=== PATIENT | female | born 1975 | race Caucasian/White ===

== ENCOUNTER 2019-05-21 14:46 | Emergency (ER) | payer MEDICAID ==
[2019-05-21] MEDS ORDERED: HYDROcodone/Ibuprofen 7.5-200 MG Tab PO ONE (15:07)
[2019-05-21] MEDS ORDERED: oxyCODONE 5 MG Tab PO ONE (15:18)
[2019-05-21] MEDS ORDERED: Ondansetron 4 MG Tab.DIS PO ONE (15:25)
--- NOTE | 2019-05-21 15:50 | CR ---
[id number] RAD/RAD Elbow Right 3V Min Exam: RAD Elbow Right 3V Min Indication:FALL, RIGHT ELBOW PAIN. Comparison: No prior imaging for comparison. Discussion: Mild amount of soft tissue swelling over the olecranon of the elbow. No radiographically evident fracture. No joint effusion or dislocation. Impression: Soft tissue swelling over the olecranon without fracture or dislocation. Dexter Cadet MD 05/21/19 [id number] Thank you for allowing us to participate in the care of your patient.
--- NOTE | 2019-05-22 04:12 | EDM.PDOC ---
ED HPI GENERAL MEDICAL PROBLEM - General Chief Complaint: Upper Extremity Injury/Pain Stated Complaint: POSSIBLE BROKEN ARM Time Seen by Provider: 05/21/19 14:50 Source of Information: Reports: Patient History Limitations: Reports: No Limitations - History of Present Illness INITIAL COMMENTS - FREE TEXT/NARRATIVE: Pt. presents to ER with complaints of injury to R elbow and R hip/thigh region following a fall near [facility]. Pt. states that it was a mechanical fall and denies any symptoms prior to or after the fall. Did not strike her head. Denies any neck pain. Pt. is able to bear weight and ambulate, and states that her hip pain is beginning to improve but complains of severe R elbow pain. Denies any numbness/tingling in the distal portion of the extremity. Onset: Today Location: Reports: Upper Extremity, Right Quality: Reports: Ache, Throbbing Severity: Severe Right Elbow Pain Score (Numeric/FACES): 10 - Related Data Allergies Allergy/AdvReac Type Severity Reaction Status Date / Time acetaminophen [From Tylenol] Allergy Vomiting Verified 05/21/19 15:04 tizanidine Allergy Hives Verified 05/21/19 15:04 Home Meds: Home Meds . [No Known Home Meds] 05/21/19 [History] Past Medical History - Past Health History Medical/Surgical History: Denies Medical/Surgical History Psychiatric History: Reports: Anxiety - Past Surgical History Musculoskeletal Surgical History: Reports: Other (See Below) Social & Family History - Tobacco Use Smoking Status *Q: Current Every Day Smoker Years of Tobacco use: 20 Packs/Tins Daily: 0.4 Review of Systems - Review of Systems Review Of Systems: ROS reveals no pertinent complaints other than HPI. ED EXAM, GENERAL - Physical Exam Exam: See Below Exam Limited By: No Limitations General Appearance: Alert, WD/WN, No Apparent Distress Head: Atraumatic, Normocephalic Neck: Normal Inspection, Supple, Non-Tender, Full Range of Motion Back Exam: Normal Inspection, Full Range of Motion Extremities: Other (hematoma/abrasion to R elbow, hematoma noted to R upper posterior thigh. No deformity noted. ROM of both hip and elbow are normal.) Neurological: Alert, Oriented, CN II-XII Intact, Normal Cognition, Normal Gait, Normal Reflexes, No Motor/Sensory Deficits Psychiatric: Normal Affect, Normal Mood, Tearful Course - Vital Signs Last Recorded V/S: Last Vital Signs Temp 36.1 C 05/21/19 14:55 Pulse 95 05/21/19 14:55 Resp 16 05/21/19 14:55 BP 131/78 05/21/19 14:55 Pulse Ox 99 05/21/19 14:55 - Orders/Labs/Meds Meds: Medications Discontinued Medications Generic Name Dose Route Start Last Admin Trade Name Gigi PRN Reason Stop Dose Admin Hydrocodone Bitartrate/Ibuprofen 1 tab 05/21/19 15:07 Vicoprofen PO 05/21/19 15:08 ONETIME ONE Ondansetron HCl 4 mg 05/21/19 15:25 05/21/19 15:27 Zofran Odt PO 05/21/19 15:26 4 mg ONETIME ONE Administration Oxycodone HCl 5 mg 05/21/19 15:18 05/21/19 15:24 Oxycodone PO 05/21/19 15:19 5 mg ONETIME ONE Administration - Radiology Interpretation Free Text/Narrative:: radiographs of R elbow are negative for acute pathology. Departure - Departure Time of Disposition: 16:00 Disposition: Home, Self-Care 01 Clinical Impression: Multiple contusions, Elbow contusion - Discharge Information Instructions: Tramadol tablets, Elbow Contusion, [id number] Referrals: Doreen Mcgill DO [Primary Care Provider] - Forms: ED Department Discharge Additional Instructions: Home to rest. Excuse from work today and tomorrow if needed. Tramadol 50mg 1 every 6 hours as needed for pain Follow-up in clinic in 7-10 day if not improving Ice painful areas for 15 min every hour - Assessment/Plan Plan: Home to rest. Excuse from work today and tomorrow if needed. Tramadol 50mg 1 every 6 hours as needed for pain Follow-up in clinic in 7-10 day if not improving Ice painful areas for 15 min every hour
== END 2019-05-21 16:00 | disposition home or self-care (01) ==
LOC: VM.ED 14:46
DX: S50.01XA Contusion of right elbow, initial encounter (principal); S70.11XA Contusion of right thigh, initial encounter; F17.210 Nicotine dependence, cigarettes, uncomplicated; Z88.8 Allergy status to other drugs, medicaments and biological substances; W19.XXXA Unspecified fall, initial encounter
CPT/HCPCS: 73080; 99283; A9270

== ENCOUNTER 2025-10-14 10:37 | Day surgery (SDC) | payer MEDICAID ==
[~2025-10-14 10:37] MED LIST: Propofol 200 MG/20 ML SDV ONE; fentaNYL 100 MCG/2 ML SDV ONE
[2025-10-14] MEDS: Lactated Ringers 1,000 ML IV SCH (10:49)
[2025-10-14] MEDS ORDERED: Bupivacaine 0.5%/EPINEPHrine 1:200,000 30 ML SDV ONE (12:17)
[2025-10-14] MEDS ORDERED: Midazolam 1 MG/ML 2 ML SDV ONE (12:19)
[2025-10-14] MEDS: Bupivacaine 0.5%/EPINEPHrine 1:200,000 30 ML SDV INJECT ONE ×2 (12:38)
[2025-10-14] MEDS ORDERED: Bacitracin Oint 1 GM U/D Packet ONE (12:43)
[2025-10-14] MEDS: Ondansetron 4 MG/2 ML SDV IVPUSH PRN (13:07)
== END 2025-10-14 13:45 | disposition home or self-care (01) ==
LOC: VM.SDS 10:37
PROVIDERS: ATTEND Surgery
DX: L72.12 Trichodermal cyst (principal); Z88.8 Allergy status to other drugs, medicaments and biological substances; Z87.891 Personal history of nicotine dependence; Z79.899 Other long term (current) drug therapy
CPT/HCPCS: 00300; J0665; J0690; J2250; J2405; J2704; J3010; J7120